=== PATIENT | female | born 1960 | race Hispanic/Latino ===

== ENCOUNTER 2018-02-02 08:45 | Emergency (ER) | payer OTHER ==
[~2018-02-02] VITALS: Ht 157.5 cm; Wt 72.1 kg
[2018-02-02] MEDS ORDERED: ONDANSETRON HCL INJ 2 MG/ML VIAL IV STA (09:33)
[2018-02-02] MEDS ORDERED: FAMOTIDINE 20 MG/2 ML VIAL IV STA (09:33)
[2018-02-02] MEDS ORDERED: MAGNESIUM/ALUMINUM/SIMETHICONE 30 ML UDC PO ONE (09:45)
[2018-02-02] MEDS ORDERED: BELLADONNA ALK/PHENOBARBITAL 5 ML UDC PO ONE (09:45)
[2018-02-02] MEDS ORDERED: LIDOCAINE VISC 2% SOLN 15 ML UDC PO ONE (09:45)
[2018-02-02] MEDS ORDERED: SODIUM CHLORIDE 0.9% 1000ML 1,000 ML IV SCH (09:45)
[2018-02-02] MEDS ORDERED: ASPIR 8181 MG (09:56)
[2018-02-02] MEDS ORDERED: VASOTEC10 M1 (09:56)
[2018-02-02] MEDS ORDERED: FOLPLEX 2.2 TA1 EACH (09:57)
[2018-02-02] MEDS ORDERED: GABAPENTIN100 MG (09:58)
[2018-02-02] MEDS ORDERED: HYDROCHLOROTHIA25 MG (09:58)
[2018-02-02] MEDS ORDERED: CEFTRIAXONE SOD 1 GM VIAL IV ONE (11:15)
[2018-02-02 13:12] VITALS: BP 132/78
== END 2018-02-02 12:50 | disposition home or self-care (01) ==
LOC: FSED 08:45
DX: R07.89 Other chest pain (principal); E87.1 Hypo-osmolality and hyponatremia; E87.6 Hypokalemia; N30.90 Cystitis, unspecified without hematuria; K21.9 Gastro-esophageal reflux disease without esophagitis
CPT/HCPCS: 71046; 74177; 80053; 80076; 80307; 81003; 81025; 82553; 84484; 85025; 93005; 96360; 96374; 99284; J0696; J2405